=== PATIENT | male | born 1960 | race Two or more races ===

== ENCOUNTER 2016-10-19 12:35 | Inpatient (IN) | payer MEDICARE, MEDICAID ==
[~2016-10-19] VITALS: Ht 180.3 cm; Wt 93.0 kg
[2016-10-19] MEDS ORDERED: ONDANSETRON HCL 4MG/2ML VIAL IV PRN (13:15)
[2016-10-19] MEDS: MORPHINE SULFATE 4 MG/ML CPJ (NOT FOR IM USE) IV PRN ×3 (13:40→20:15)
[2016-10-19] MEDS ORDERED: MORPHINE SULFATE 4 MG/ML CPJ (NOT FOR IM USE) IV ONE (14:45)
[2016-10-19 15:55] LABS: BASOPHILS % 0.5 % (0.0-2.0); EOSINOPHILS % 0.2 % (0.0-5.0); HEMATOCRIT. 41.6 % (42.0-52.0); HEMOGLOBIN. 14.2 g/dL (14.0-18.0); LYMPHOCYTES % 13.4 % (20.0-50.0); MEAN CORPUSCULAR HEMOGLOBIN 31.9 pg (28.0-32.0); MEAN CORPUSCULAR HGB CONC 34.2 g/dL (31.0-37.0); MEAN CORPUSCULAR VOLUME 93.3 fL (80.0-94.0); MEAN PLATELET VOLUME 8.2 fl (7.4-10.4); MONOCYTES % 7.7 % (2.0-8.0); NEUTROPHILS % 78.2 % (40.0-76.0); PLATELET 279 x1000/uL (130-400); RED BLOOD CELL COUNT 4.46 mill/uL (4.7-6.1); WHITE BLOOD COUNT 15.1 x1000/uL (4.5-11.0)
[2016-10-19 15:57] LABS: CHLORIDE 100 mEq/L (98-107); INDEX HEMOLYSI 1 (1-3); INDEX ICTERIC 1 (1-4); INDEX LIPEMIC 1 (1-3)
[2016-10-19 15:59] LABS: INR 1.1; PROTHROMBIN TIME 11.1 sec
[2016-10-19 16:02] LABS: ANION GAP 11; CALCIUM 8.6 mg/dL (8.5-10.1); CARBON DIOXIDE 30 mEq/L (21-32); UREA NITROGEN BLOOD 11 mg/dL (7-21); eGFR > 60 mL/min (>60)
[2016-10-19] MEDS ORDERED: SODIUM CHLORIDE 0.9% 1,000 ML IV ONE (16:16)
[2016-10-19 21:55] VITALS: BP 130/68
[2016-10-19] MEDS ORDERED: LORAZEPAM 2MG/ML CPJ IV PRN (23:30)
[2016-10-19] MEDS: GABAPENTIN 300MG CAPSULE PO SCH (23:57)
[2016-10-19] MEDS: KETOROLAC 30MG/ML VIAL IV PRN (23:58)
[2016-10-19] MEDS: FAMOTIDINE 20MG TABLET PO SCH (23:58)
[2016-10-20] VITALS: BP 113/73
[2016-10-20] MEDS ORDERED: GABA-529 PO (02:06)
[2016-10-20] MEDS ORDERED: LORA1TAB PO (02:06)
[2016-10-20 04:00] VITALS: BP_SYST 113; BP_SYST 122; BP_DIAS 66; BP_DIAS 85
[2016-10-20] MEDS: KETOROLAC 30MG/ML VIAL IV PRN ×2 (04:07→08:30)
[2016-10-20 08:00] VITALS: BP 115/78
[2016-10-20] MEDS: ENOXAPARIN 40MG/0.4ML SYR SUBCUT SCH (08:28)
[2016-10-20] MEDS ORDERED: LISINOPRIL 40MG TABLET PO SCH (09:00)
[2016-10-20] MEDS ORDERED: MORPHINE SULFATE 2 MG/ML CPJ (NOT FOR IM USE) IV PRN (10:45)
[2016-10-20 12:00] VITALS: BP 117/70
[2016-10-20] MEDS ORDERED: POTASSIUM CHLORIDE 20MEQ TABLET SR PO SCH (13:00)
[2016-10-20] MEDS ORDERED: FENTANYL CITRATE/PF 50MCG/ML 2ML VIAL IV PRN (13:15)
[2016-10-20] MEDS ORDERED: ONDANSETRON HCL 4MG/2ML VIAL IV PRN ×2 (13:15→18:45)
[2016-10-20] MEDS ORDERED: HYDROMORPHONE HCL/PF 2MG/ML CPJ IV PRN (13:15)
[2016-10-20] MEDS ORDERED: SUCCINYLCHOLINE CHLORIDE 200MG/10ML VIAL IV ONE (13:51)
[2016-10-20] MEDS ORDERED: LIDOCAINE HCL 1% 20ML VIAL (Pyxis) INJ ONE ×2 (13:51→15:59)
[2016-10-20] MEDS ORDERED: PROPOFOL 200MG/20ML VIAL IV ONE ×2 (13:51→15:59)
[2016-10-20] MEDS ORDERED: FENTANYL CITRATE/PF 50MCG/ML 2ML VIAL ONE (13:52)
[2016-10-20] MEDS ORDERED: MIDAZOLAM HCL 2 MG/2 ML VIAL ONE ×2 (13:52→15:59)
[2016-10-20] MEDS ORDERED: ROPIVACAINE HCL 10MG/ML 20 ML VIAL EPI ONE (15:24)
[2016-10-20] MEDS ORDERED: MORPHINE SULFATE 4 MG/ML CPJ (NOT FOR IM USE) IV ONE (15:24)
[2016-10-20] MEDS ORDERED: BACITRACIN 50,000 UNITS/VIAL ONE (15:25)
[2016-10-20] MEDS ORDERED: NORMAL SALINE 0.9% 10 ML SYR ONE (15:31)
[2016-10-20] MEDS ORDERED: FENTANYL CITRATE/PF 50MCG/ML 5ML VIAL ONE (16:00)
[2016-10-20] MEDS ORDERED: CEFAZOLIN SODIUM 1000MG/VIAL ONE (16:10)
[2016-10-20] MEDS ORDERED: SODIUM CHLORIDE 0.9% 10ML VIAL ONE (16:11)
[2016-10-20] MEDS ORDERED: BUPIVACAINE/EPINEPH/PF 0.25%/0.0005 10ML ONE (16:49)
[2016-10-20] MEDS ORDERED: TRANEXAMIC ACID IV NR (17:15)
[2016-10-20] MEDS ORDERED: SODIUM CHLORIDE 0.9% IV NR (17:15)
[2016-10-20] MEDS ORDERED: KETOROLAC 60MG/2ML VIAL IM ONE (17:25)
[2016-10-20] MEDS ORDERED: ROCURONIUM BROMIDE 10MG/ML VIAL 5ML IV ONE (17:29)
[2016-10-20] MEDS ORDERED: ONDANSETRON HCL 4MG/2ML VIAL ONE (17:36)
[2016-10-20] MEDS ORDERED: METOCLOPRAMIDE HCL 10MG/2ML VIAL ONE (17:36)
[2016-10-20] MEDS ORDERED: CEFAZOLIN 1000MG PREMIX 50 ML IV NR (18:45)
[2016-10-20] MEDS: FENTANYL CITRATE/PF 50MCG/ML 2ML VIAL IV PRN ×2 (18:52→19:04)
[2016-10-20] MEDS ORDERED: HYDROMORPHONE PCA 10MG/50ML IV PRN (19:00)
[2016-10-20] MEDS ORDERED: HYDROMORPHONE PCA 50 ML IV ONE (19:02)
[2016-10-20] MEDS: HYDROMORPHONE HCL/PF 2MG/ML CPJ IV PRN ×3 (19:20→19:45)
[2016-10-20 20:00] VITALS: BP 140/68
[2016-10-20] MEDS: HYDROCODONE/ACETAMINOPHEN 5/325MG TABLET PO SCH (20:00)
[2016-10-20] MEDS ORDERED: ATORVASTATIN CALCIUM 10MG TABLET PO SCH (21:00)
[2016-10-20 21:50] VITALS: BP 111/72
[2016-10-20] MEDS ORDERED: ONDANSETRON INJ IV PRN (22:00)
[2016-10-20] MEDS ORDERED: DIPHENHYDRAMINE INJ IV PRN (22:00)
[2016-10-20] MEDS ORDERED: NALOXONE INJ IV PRN (22:00)
[2016-10-20] MEDS: CEFAZOLIN 1000MG PREMIX 50 ML IV SCH ×2 (22:45→23:08)
[2016-10-20] MEDS: FAMOTIDINE 20MG TABLET PO SCH (22:46)
[2016-10-20] MEDS: GABAPENTIN 300MG CAPSULE PO SCH (22:46)
[2016-10-20] MEDS: ATORVASTATIN CALCIUM 40MG TABLET PO SCH (22:46)
[2016-10-20] MEDS: LISINOPRIL 40MG TABLET PO SCH (22:47)
[2016-10-21] VITALS: BP 101/60
[2016-10-21 04:00] VITALS: BP 101/62
[2016-10-21] MEDS: HYDROCODONE/ACETAMINOPHEN 5/325MG TABLET PO SCH ×6 (04:00→20:00)
[2016-10-21] MEDS: CEFAZOLIN 1000MG PREMIX 50 ML IV SCH (04:50)
[2016-10-21 07:42] VITALS: BP 104/61
[2016-10-21] MEDS: LISINOPRIL 40MG TABLET PO SCH (08:33)
[2016-10-21] MEDS: HYDROCHLOROTHIAZIDE 25MG TABLET PO SCH ×2 (08:33→16:14)
[2016-10-21] MEDS: ENOXAPARIN 40MG/0.4ML SYR SUBCUT SCH (08:34)
[2016-10-21 12:00] VITALS: BP 96/62
[2016-10-21 15:52] VITALS: BP 106/64
[2016-10-21 20:00] VITALS: BP 115/70
[2016-10-21] MEDS: FAMOTIDINE 20MG TABLET PO SCH (22:03)
[2016-10-21] MEDS: GABAPENTIN 300MG CAPSULE PO SCH (22:04)
[2016-10-22] VITALS: BP 113/69
[2016-10-22] MEDS: HYDROCODONE/ACETAMINOPHEN 5/325MG TABLET PO SCH ×6 (00:21→20:39)
[2016-10-22] MEDS: ATORVASTATIN CALCIUM 40MG TABLET PO SCH ×2 (03:06→20:50)
[2016-10-22 04:33] VITALS: BP 106/69
[2016-10-22 07:21] LABS: ANION GAP 9; CARBON DIOXIDE 31 mEq/L (21-32); CHLORIDE 104 mEq/L (98-107); INDEX HEMOLYSI 1 (1-3); INDEX ICTERIC 1 (1-4); INDEX LIPEMIC 1 (1-3); UREA NITROGEN BLOOD 11 mg/dL (7-21); eGFR > 60 mL/min (>60)
[2016-10-22 07:38] VITALS: BP 107/75
[2016-10-22] MEDS: HYDROCHLOROTHIAZIDE 25MG TABLET PO SCH ×2 (09:00→17:26)
[2016-10-22 09:18] LABS: BASOPHILS % 0.4 % (0.0-2.0); EOSINOPHILS % 2.1 % (0.0-5.0); HEMATOCRIT. 35.7 % (42.0-52.0); LYMPHOCYTES % 25.8 % (20.0-50.0); MEAN CORPUSCULAR HEMOGLOBIN 31.3 pg (28.0-32.0); MEAN CORPUSCULAR HGB CONC 33.7 g/dL (31.0-37.0); MEAN PLATELET VOLUME 8.4 fl (7.4-10.4); NEUTROPHILS % 58.7 % (40.0-76.0); PLATELET 259 x1000/uL (130-400); RED BLOOD CELL COUNT 3.84 mill/uL (4.7-6.1); RED CELL DISTRIBUTION WIDTH 12.9 % (11.6-14.6); WHITE BLOOD COUNT 12.2 x1000/uL (4.5-11.0)
[2016-10-22] MEDS: ENOXAPARIN 40MG/0.4ML SYR SUBCUT SCH (09:42)
[2016-10-22 12:09] VITALS: BP 121/75
[2016-10-22 16:10] VITALS: BP 137/0
[2016-10-22 20:00] VITALS: BP 145/90
[2016-10-22] MEDS: FAMOTIDINE 20MG TABLET PO SCH (20:39)
[2016-10-22] MEDS: GABAPENTIN 300MG CAPSULE PO SCH (20:39)
[2016-10-23] VITALS (7 sets, daily range): BP systolic 102–129; BP diastolic 64–87
[2016-10-23] MEDS: HYDROCODONE/ACETAMINOPHEN 5/325MG TABLET PO SCH ×5 (00:40→16:30)
[2016-10-23] MEDS: HYDROCHLOROTHIAZIDE 25MG TABLET PO SCH ×2 (08:46→16:30)
[2016-10-23] MEDS: APIXABAN 2.5 MG TABLET PO SCH ×2 (08:46→16:30)
[2016-10-23] MEDS ORDERED: LISINOPRIL 40MG TABLET PO SCH (09:00)
== END 2016-10-23 19:50 | disposition home or self-care (01) | DRG 494 ==
LOC: ER 13:08 → 8WST 15:31
PROVIDERS: ADMIT Internal Medicine Pulmonary Disease; ATTEND Internal Medicine Pulmonary Disease
PROC: 0QSG35Z Reposition Right Tibia with External Fixation Device, Percutaneous Approach (ICD-10-PCS; principal; 2016-10-20 15:00)
DX: S82.141A Displaced bicondylar fracture of right tibia, initial encounter for closed fracture (principal); K21.9 Gastro-esophageal reflux disease without esophagitis; I10 Essential (primary) hypertension; E78.5 Hyperlipidemia, unspecified; D72.829 Elevated white blood cell count, unspecified; E78.00 Pure hypercholesterolemia, unspecified; D64.9 Anemia, unspecified; F41.9 Anxiety disorder, unspecified; E87.6 Hypokalemia; F32.9 Major depressive disorder, single episode, unspecified; R26.9 Unspecified abnormalities of gait and mobility; K59.00 Constipation, unspecified; V28.4XXA Motorcycle driver injured in noncollision transport accident in traffic accident, initial encounter; Y93.89 Activity, other specified; Y92.89 Other specified places as the place of occurrence of the external cause; Y99.8 Other external cause status; Z79.899 Other long term (current) drug therapy; Z80.3 Family history of malignant neoplasm of breast; Z82.49 Family history of ischemic heart disease and other diseases of the circulatory system; Z83.3 Family history of diabetes mellitus; Z86.61 Personal history of infections of the central nervous system; Z98.890 Other specified postprocedural states
CPT/HCPCS: 29505; 36415; 73140; 73590; 73700; 80048; 85025; 85610; 93005; 96361; 96374; 96375; 96376; 97110; 97116; 97162; 97166; 97530; 99285; A4216; J0171; J0330; J0690; J1170; J1650; J1885; J2250; J2270; J2405; J2704; J2765; J2795; J3010; J3490; J7030; J7040; J7042; J7050

== ENCOUNTER 2021-06-07 21:05 | Inpatient (IN) | payer OTHER, MEDICAID ==
[~2021-06-07] VITALS: Ht 180.3 cm; Wt 89.8 kg
[~2021-06-07 21:05] MED LIST: GABA-529 PO
[2021-06-07] MEDS ORDERED: SODIUM CHLORIDE 0.9% 1,000 ML IV ONE (21:30)
[2021-06-07 21:50] LABS: BASOPHILS % 0.5 % (0.0-2.0); EOSINOPHILS % 0.2 % (0.0-5.0); HEMATOCRIT. 38.6 % (42.0-52.0); MEAN CORPUSCULAR VOLUME 92.3 fL (80.0-94.0); MEAN PLATELET VOLUME 8.7 fl (7.4-10.4); MONOCYTES % 8.4 % (2.0-8.0); NEUTROPHILS % 77.9 % (40.0-76.0); PLATELET 313 x1000/uL (130-400); RED BLOOD CELL COUNT 4.18 mill/uL (4.7-6.1); RED CELL DISTRIBUTION WIDTH 12.9 % (11.6-14.6)
[2021-06-07 22:01] LABS: CHLORIDE 105 mEq/L (98-107)
[2021-06-07 22:12] LABS: T4 FREE 2.35 ng/dL (0.76-1.46)
[2021-06-07] MEDS ORDERED: HYDROCORTISONE SOD SUCCINATE 250 MG/2 ML VIAL IV ONE (22:30)
[2021-06-07 22:33] LABS: INR 1.1; PROTHROMBIN TIME 11.5 sec (9.6-11.0)
[2021-06-07] MEDS: PROPRANOLOL HCL 10MG TABLET PO SCH ×2 (23:01→23:04)
[2021-06-07] MEDS ORDERED: ENOXAPARIN 40MG/0.4ML SYR SUBCUT SCH (23:30)
[2021-06-07] MEDS ORDERED: DOCUSATE SODIUM 100MG CAPSULE PO PRN (23:30)
[2021-06-07] MEDS ORDERED: IPRATROPIUM/ALBUTEROL 0.5-3(2.5)MG/3ML NEB HHN PRN (23:30)
[2021-06-07] MEDS ORDERED: ACETAMINOPHEN 325MG TABLET PO PRN (23:30)
[2021-06-07] MEDS ORDERED: MORPHINE SULFATE 2 MG/ML CPJ (NOT FOR IM USE) IV PRN (23:30)
[2021-06-07] MEDS ORDERED: HYDRALAZINE 20MG/ML VIAL IV PRN (23:30)
[2021-06-07] MEDS ORDERED: HYDROCODONE/ACETAMINOPHEN 5/325MG TABLET PO PRN (23:30)
[2021-06-07] MEDS ORDERED: CLONIDINE 0.1MG TABLET PO PRN (23:30)
[2021-06-07] MEDS ORDERED: GUAIFENESIN 200MG/10ML SUGAR FREE UDC PO PRN (23:30)
[2021-06-07] MEDS ORDERED: DIPHENHYDRAMINE 50MG/ML VIAL IV PRN (23:30)
[2021-06-07] MEDS ORDERED: MAGNESIUM/ALUMINUM HYDROXIDE/SIMETHICONE 30ML UDC PO PRN (23:30)
[2021-06-07] MEDS ORDERED: ONDANSETRON HCL 4MG/2ML INJ IV PRN (23:30)
[2021-06-08] MEDS: METHIMAZOLE 10MG TABLET PO SCH ×4 (01:02→21:40)
[2021-06-08] MEDS: LORAZEPAM 2MG/ML CPJ IV PRN ×2 (01:41→21:41)
[2021-06-08] MEDS: DEXT 5%/0.45% NACL 1000ML 1,000 ML IV SCH ×2 (01:48→13:53)
[2021-06-08 02:00] VITALS: BP 120/60
[2021-06-08 04:00] VITALS: BP 98/50
[2021-06-08] MEDS: PROPRANOLOL HCL 10MG TABLET PO SCH ×5 (04:00→20:00)
[2021-06-08] MEDS: SODIUM CHLORIDE 0.9% INJ 3ML FLUSH IVF SCH ×3 (06:33→21:40)
[2021-06-08 07:32] LABS: BASOPHILS % 0.1 % (0.0-2.0); HEMATOCRIT. 37.9 % (42.0-52.0); HEMOGLOBIN. 12.5 g/dL (14.0-18.0); LYMPHOCYTES % 16.8 % (20.0-50.0); MEAN CORPUSCULAR HEMOGLOBIN 30.2 pg (28.0-32.0); MEAN CORPUSCULAR VOLUME 91.8 fL (80.0-94.0); MEAN PLATELET VOLUME 8.9 fl (7.4-10.4); MONOCYTES % 5.1 % (2.0-8.0); PLATELET 329 x1000/uL (130-400); RED BLOOD CELL COUNT 4.13 mill/uL (4.7-6.1)
[2021-06-08] MEDS ORDERED: LORA-250 PO (07:49)
[2021-06-08] MEDS ORDERED: TAP5 PO (07:49)
[2021-06-08] MEDS ORDERED: LISI10TA26 PO (07:49)
[2021-06-08 08:01] LABS: CHLORIDE 110 mEq/L (98-107)
[2021-06-08] MEDS ORDERED: ENOXAPARIN 30MG/0.3ML SYR SUBCUT SCH (09:00)
[2021-06-08] MEDS ORDERED: PNEUMOCOCCAL 23-VAL P-SAC VAC 0.5 ML IM ONE (10:00)
[2021-06-08 12:00] VITALS: BP 111/63
[2021-06-08 15:10] LABS: CLARITY URINE CLEAR (CLEAR); COLOR URINE YELLOW (YELLOW); KETONES URINE NEGATIVE (NEGATIVE); LEUKOCYTE ESTERASE URINE NEGATIVE (NEGATIVE); NITRITE URINE NEGATIVE (NEGATIVE); OCCULT BLOOD URINE NEGATIVE (NEGATIVE); PH URINE 6.5 (4.5-8.0); PROTEIN URINE NEGATIVE (NEGATIVE); SPECIFIC GRAVITY URINE 1.014 (1.005-1.030)
[2021-06-08 15:20] LABS: METHADONE URINE SCREEN NEGATIVE (NEGATIVE)
[2021-06-08 15:21] LABS: *AMPHETAMINES SCREEN URINE NEGATIVE (NEGATIVE); *BARBITURATES SCREEN URINE NEGATIVE (NEGATIVE); CANNABINOID URINE SCREEN NEGATIVE (NEGATIVE); PHENCYCLIDINE URINE SCREEN NEGATIVE (NEGATIVE)
[2021-06-08 15:23] LABS: *BENZODIAZEPINES SCREEN URINE NEGATIVE (NEGATIVE); *COCAINE SCREEN URINE NEGATIVE (NEGATIVE); OPIATES URINE SCREEN PRESUMTIVE POSITIVE (NEGATIVE)
[2021-06-08 16:00] VITALS: BP 103/54
[2021-06-08 16:18] LABS: CREATINE KINASE 24 IU/L (39-308)
[2021-06-08 16:19] LABS: CREATINE KINASE MB FRACTION < 1.0 ng/mL (0.5-3.6)
[2021-06-08 20:00] VITALS: BP 100/60
[2021-06-08] MEDS ORDERED: ENOXAPARIN 40MG/0.4ML SYR SUBCUT SCH (21:00)
[2021-06-08 23:19] LABS: CREATINE KINASE 22 IU/L (39-308)
[2021-06-08 23:20] LABS: CREATINE KINASE MB FRACTION < 1.0 ng/mL (0.5-3.6)
[2021-06-09] VITALS: BP 115/54
[2021-06-09] MEDS: DEXT 5%/0.45% NACL 1000ML 1,000 ML IV SCH (02:50)
[2021-06-09 03:47] VITALS: BP 111/58
[2021-06-09] MEDS: PROPRANOLOL HCL 10MG TABLET PO SCH ×4 (03:49→12:00)
[2021-06-09] MEDS: METHIMAZOLE 10MG TABLET PO SCH ×2 (06:16→14:00)
[2021-06-09] MEDS: SODIUM CHLORIDE 0.9% INJ 3ML FLUSH IVF SCH ×2 (06:16→14:00)
[2021-06-09 06:26] LABS: BASOPHILS % 0.5 % (0.0-2.0); EOSINOPHILS % 1.5 % (0.0-5.0); HEMATOCRIT. 34.5 % (42.0-52.0); HEMOGLOBIN. 11.5 g/dL (14.0-18.0); LYMPHOCYTES % 32.8 % (20.0-50.0); MEAN CORPUSCULAR HEMOGLOBIN 30.3 pg (28.0-32.0); MEAN CORPUSCULAR VOLUME 90.6 fL (80.0-94.0); MEAN PLATELET VOLUME 9.1 fl (7.4-10.4); MONOCYTES % 13.5 % (2.0-8.0); NEUTROPHILS % 51.7 % (40.0-76.0); PLATELET 291 x1000/uL (130-400); RED CELL DISTRIBUTION WIDTH 12.8 % (11.6-14.6)
[2021-06-09 06:56] LABS: CHLORIDE 111 mEq/L (98-107)
[2021-06-09 07:09] LABS: CREATINE KINASE 19 IU/L (39-308)
[2021-06-09 07:11] LABS: CREATINE KINASE MB FRACTION < 1.0 ng/mL (0.5-3.6)
[2021-06-09 08:00] VITALS: BP 104/55
[2021-06-09] MEDS ORDERED: INFLUENZA VACCINE 05/PF 0.5 ML SYRINGE IM ONE (10:00)
[2021-06-09 12:00] VITALS: BP 113/58
[2021-06-09] MEDS ORDERED: POTASSIUM CHLORIDE 20MEQ TABLET SR PO SCH (12:45)
== END 2021-06-09 15:00 | disposition home or self-care (01) | DRG 644 ==
LOC: ER 21:05 → 8WST 22:56 → ENRESERV 23:45
PROVIDERS: ADMIT Internal Medicine; ATTEND Internal Medicine
DX: E05.91 Thyrotoxicosis, unspecified with thyrotoxic crisis or storm (principal); E87.2 Acidosis; R65.10 Systemic inflammatory response syndrome (SIRS) of non-infectious origin without acute organ dysfunction; D64.9 Anemia, unspecified; E78.5 Hyperlipidemia, unspecified; I10 Essential (primary) hypertension; E66.3 Overweight; E87.6 Hypokalemia; F17.210 Nicotine dependence, cigarettes, uncomplicated; I95.9 Hypotension, unspecified; E11.9 Type 2 diabetes mellitus without complications; Z83.3 Family history of diabetes mellitus; Z79.899 Other long term (current) drug therapy; Z71.3 Dietary counseling and surveillance; Z68.27 Body mass index [BMI] 27.0-27.9, adult
CPT/HCPCS: 36415; 71045; 80048; 80053; 80061; 80305; 81003; 82550; 82553; 82962; 83036; 83605; 83880; 84439; 84443; 84480; 84484; 85025; 85379; 90686; 90732; 93005; 93306; 93970; 99285; J1650; J1720; J2060; J7030